=== PATIENT | female | born 1950 | race African-American/Black ===

== ENCOUNTER 2018-04-24 08:17 | Day surgery (SDC) | payer BC ==
[2018-04-21 15:58] VITALS: BMI 33.4
[2018-04-24 09:02] LABS: BASO % 0.4 % (0-2.0); EOS % 1.1 % (0-4.5); HEMATOCRIT 41.1 % (32.4-45.2); HEMOGLOBIN 14.1 GM/dL (10.7-15.3); LYMPH % 21.6 % (8-40); MCH 34.6 pg (25.7-33.7); MCHC 34.4 g/dl (32.0-36.0); MEAN CELL VOLUME 100.5 fl (80-96); MEAN PLT VOLUME 7.7 fl (7.5-11.1); MONO % 6.5 % (3.8-10.2); NEUT % 70.4 % (42.8-82.8); PLATELET COUNT 319 K/MM3 (134-434); RBC 4.09 M/mm3 (3.60-5.2); RDW 14.3 % (11.6-15.6)
[2018-04-24 09:25] LABS: INR 1.14 (0.83-1.09); PROTHROMBIN TIME (PATIENT) 12.9 SEC (9.7-13.0)
[2018-04-24] MEDS ORDERED: ceFAZolin SODIUM 1 GM VIAL ONE (10:19)
[2018-04-24] MEDS ORDERED: MIDAZOLAM HCL 2 MG/2 ML SINGLE DOSE VIAL ONE (10:39)
[2018-04-24 13:28] VITALS: BP 146/90; PULSE 87; TEMP 98.4
== END 2018-04-24 13:05 | disposition home or self-care (01) ==
LOC: JRADIR 08:17
PROVIDERS: ATTEND Internal Medicine Hematology & Oncology
PROC: 02H633Z Insertion of Infusion Device into Right Atrium, Percutaneous Approach (ICD-10-PCS; principal; 2018-04-24)
PROC: B214YZZ Fluoroscopy of Right Heart using Other Contrast (ICD-10-PCS; 2018-04-24)
DX: C50.919 Malignant neoplasm of unspecified site of unspecified female breast (principal)
CPT/HCPCS: 36561; 77001; C1751; 36415; 85025; 85610; C1788

== ENCOUNTER 2018-04-25 07:37 | Day surgery (SDC) | payer BC ==
[2018-04-25] MEDS ORDERED: FOSAPREPITANT DIMEGLUMINE 150 MG in SODIUM CHLORIDE 150 ML IVPB ONE (10:00)
[2018-04-25] MEDS ORDERED: DEXAMETHASONE INJECTION 10 MG in SODIUM CHLORIDE 50 ML IVPB ONE (10:00)
[2018-04-25] MEDS ORDERED: PALONOSETRON HCL 0.25 MG/5 ML VIAL IVPUSH ONE (10:00)
[2018-04-25] MEDS ORDERED: DOXORUBICIN HCL IV ONE (10:30)
[2018-04-25] MEDS ORDERED: SODIUM CHLORIDE IV ONE (10:30)
[2018-04-25] MEDS ORDERED: CYCLOPHOSPHAMIDE IVPB ONE (11:00)
[2018-04-25] MEDS ORDERED: SODIUM CHLORIDE IVPB ONE (11:00)
[2018-04-25] MEDS ORDERED: SODIUM CHLORIDE 250 ML IV STA (11:26)
[2018-04-25] MEDS ORDERED: SODIUM CHLORIDE 250 ML IV ONE (11:30)
[2018-04-25 17:58] VITALS: TEMP 98.6
[2018-04-25 18:30] VITALS: BP 125/84; PULSE 84
[2018-04-25] MEDS ORDERED: PORTA CATH FLUSH 10 ML IVPUSH ONE (18:30)
== END 2018-04-25 16:45 | disposition home or self-care (01) ==
LOC: JONCCHEMO 07:37 → J7W 12:00 → JONCCHEMO 16:45
PROVIDERS: ATTEND Internal Medicine Hematology & Oncology
PROC: 3E04305 Introduction of Other Antineoplastic into Central Vein, Percutaneous Approach (ICD-10-PCS; principal; 2018-04-25)
PROC: 3E043GC Introduction of Other Therapeutic Substance into Central Vein, Percutaneous Approach (ICD-10-PCS; 2018-04-25)
PROC: 3E0437Z Introduction of Electrolytic and Water Balance Substance into Central Vein, Percutaneous Approach (ICD-10-PCS; 2018-04-25)
DX: Z51.11 Encounter for antineoplastic chemotherapy (principal); C50.412 Malignant neoplasm of upper-outer quadrant of left female breast; Z17.1 Estrogen receptor negative status [ER-]
CPT/HCPCS: 96361; 96367; 96375; 96413; 96417; J1100; J1453; J2469; J9070

== ENCOUNTER 2018-05-10 07:38 | Day surgery (SDC) | payer BC ==
[2018-05-10] MEDS ORDERED: SODIUM CHLORIDE 250 ML IV ONE ×2 (08:00→10:00)
[2018-05-10] MEDS ORDERED: DEXAMETHASONE INJECTION 10 MG in SODIUM CHLORIDE 50 ML IVPB ONE (08:30)
[2018-05-10] MEDS ORDERED: PALONOSETRON HCL 0.25 MG/5 ML VIAL IVPUSH ONE (08:30)
[2018-05-10] MEDS ORDERED: FOSAPREPITANT DIMEGLUMINE 150 MG in SODIUM CHLORIDE 145 ML IVPB ONE (08:30)
[2018-05-10] MEDS ORDERED: SODIUM CHLORIDE IV ONE (09:00)
[2018-05-10] MEDS ORDERED: DOXORUBICIN HCL IV ONE (09:00)
[2018-05-10] MEDS ORDERED: SODIUM CHLORIDE IVPB ONE (09:30)
[2018-05-10] MEDS ORDERED: CYCLOPHOSPHAMIDE IVPB ONE (09:30)
[2018-05-10 09:45] LABS: BASO % 0.6 % (0-2.0); EOS % 0.9 % (0-4.5); HEMATOCRIT 40.4 % (32.4-45.2); HEMOGLOBIN 13.7 GM/dL (10.7-15.3); LYMPH % 14.2 % (8-40); MCH 33.7 pg (25.7-33.7); MCHC 33.9 g/dl (32.0-36.0); MEAN CELL VOLUME 99.6 fl (80-96); MEAN PLT VOLUME 7.2 fl (7.5-11.1); MONO % 9.2 % (3.8-10.2); NEUT % 75.1 % (42.8-82.8); PLATELET COUNT 372 K/MM3 (134-434); RBC 4.05 M/mm3 (3.60-5.2); RDW 14.1 % (11.6-15.6); WHITE BLOOD COUNT 10.2 K/mm3 (4.0-10.0)
[2018-05-10 10:07] LABS: ALBUMIN 3.5 g/dl (3.4-5.0); ALK PHOS 79 U/L (45-117); BILIRUBIN,DIRECT < 0.2 mg/dL (0.0-0.2); MAGNESIUM 2.1 mg/dL (1.8-2.4); SGOT/AST 18 U/L (15-37); SGPT/ALT 36 U/L (12-78); TOT PROT 7.4 g/dl (6.4-8.2)
[2018-05-10 10:08] LABS: ALBUMIN 3.5 g/dl (3.4-5.0); ANION GAP 13 MMOL/L (8-16); BILIRUBIN,TOTAL 0.1 mg/dL (0.2-1.0); BLOOD UREA NITROGEN 9 mg/dL (7-18); CALCIUM 10.3 mg/dL (8.5-10.1); CHLORIDE 108 mmol/L (98-107); CO2 22 mmol/L (21-32); CREATININE 0.9 mg/dL (0.55-1.02); GLUCOSE,RANDOM 116 mg/dL (74-106); SGOT/AST 17 U/L (15-37); SGPT/ALT 36 U/L (12-78); SODIUM 143 mmol/L (136-145); TOT PROT 7.4 g/dl (6.4-8.2)
[2018-05-10 10:09] LABS: ALK PHOS 78 U/L (45-117)
[2018-05-10 10:13] LABS: BILIRUBIN,TOTAL < 0.1 mg/dL (0.2-1.0)
[2018-05-10 12:19] LABS: ANISOCYTOSIS 1+; MACROCYTOSIS 1+; PLATELET ESTIMATE NORMAL
[2018-05-10 17:24] VITALS: TEMP 98.6
[2018-05-10 17:35] VITALS: BP 130/78; PULSE 70
[2018-05-10] MEDS ORDERED: PORTA CATH FLUSH 10 ML IVPUSH ONE (17:35)
== END 2018-05-10 16:45 | disposition home or self-care (01) ==
LOC: JONCCHEMO 07:38 → J7W 11:29 → JONCCHEMO 16:45
PROVIDERS: ATTEND Internal Medicine Hematology & Oncology
PROC: 3E04305 Introduction of Other Antineoplastic into Central Vein, Percutaneous Approach (ICD-10-PCS; principal; 2018-05-10)
PROC: 3E043GC Introduction of Other Therapeutic Substance into Central Vein, Percutaneous Approach (ICD-10-PCS; 2018-05-10)
PROC: 3E0437Z Introduction of Electrolytic and Water Balance Substance into Central Vein, Percutaneous Approach (ICD-10-PCS; 2018-05-10)
DX: C50.412 Malignant neoplasm of upper-outer quadrant of left female breast (principal); Z17.1 Estrogen receptor negative status [ER-]
CPT/HCPCS: 36415; 80053; 80076; 83735; 85025; 96361; 96367; 96375; 96413; 96417; J1100; J1453; J2469; J9070

== ENCOUNTER 2018-05-11 07:34 | Day surgery (SDC) | payer BC ==
[2018-05-11] MEDS ORDERED: PEGFILGRASTIM 6 MG/0.6 ML DISP.SYRIN SQ ONE (09:00)
[2018-05-11 17:20] VITALS: BP 158/79; PULSE 101; TEMP 98.6
== END 2018-05-11 16:45 | disposition home or self-care (01) ==
LOC: JONCCHEMO 07:34 → J7W 16:34 → JONCCHEMO 16:45
PROVIDERS: ATTEND Internal Medicine Hematology & Oncology
PROC: 3E033GC Introduction of Other Therapeutic Substance into Peripheral Vein, Percutaneous Approach (ICD-10-PCS; principal; 2018-05-11)
DX: Z76.89 Persons encountering health services in other specified circumstances (principal); C50.412 Malignant neoplasm of upper-outer quadrant of left female breast; Z17.1 Estrogen receptor negative status [ER-]
CPT/HCPCS: 96372; J2505

== ENCOUNTER 2018-05-24 07:36 | Day surgery (SDC) | payer BC ==
[2018-05-24] MEDS ORDERED: SODIUM CHLORIDE 250 ML IV ONE ×2 (09:00→11:30)
[2018-05-24] MEDS ORDERED: PALONOSETRON HCL 0.25 MG/5 ML VIAL IVPUSH ONE (10:00)
[2018-05-24] MEDS ORDERED: FOSAPREPITANT DIMEGLUMINE 150 MG in SODIUM CHLORIDE 150 ML IVPB ONE (10:00)
[2018-05-24] MEDS ORDERED: DEXAMETHASONE INJECTION 10 MG in SODIUM CHLORIDE 50 ML IVPB ONE (10:00)
[2018-05-24] MEDS ORDERED: DOXORUBICIN HCL IV ONE (10:30)
[2018-05-24] MEDS ORDERED: SODIUM CHLORIDE IV ONE (10:30)
[2018-05-24 10:37] LABS: BASO % 0.4 % (0-2.0); EOS % 0.8 % (0-4.5); HEMATOCRIT 39.5 % (32.4-45.2); HEMOGLOBIN 13.1 GM/dL (10.7-15.3); LYMPH % 16.1 % (8-40); MCH 33.1 pg (25.7-33.7); MCHC 33.1 g/dl (32.0-36.0); MEAN CELL VOLUME 100.2 fl (80-96); MEAN PLT VOLUME 7.2 fl (7.5-11.1); NEUT % 72.7 % (42.8-82.8); PLATELET COUNT 346 K/MM3 (134-434); RBC 3.94 M/mm3 (3.60-5.2); RDW 14.4 % (11.6-15.6); WHITE BLOOD COUNT 8.6 K/mm3 (4.0-10.0)
[2018-05-24] MEDS ORDERED: SODIUM CHLORIDE IVPB ONE (11:00)
[2018-05-24] MEDS ORDERED: CYCLOPHOSPHAMIDE IVPB ONE (11:00)
[2018-05-24 11:12] LABS: CHLORIDE 106 mmol/L (98-107); POTASSIUM 4.5 mmol/L (3.5-5.1); SODIUM 139 mmol/L (136-145)
[2018-05-24 12:19] LABS: ANISOCYTOSIS 1+; MACROCYTOSIS 1+; OVALOCYTE 1+; PLATELET ESTIMATE NORMAL
[2018-05-24 12:31] LABS: MAGNESIUM 1.9 mg/dL (1.8-2.4)
[2018-05-24 12:33] LABS: ALBUMIN 3.5 g/dl (3.4-5.0); BILIRUBIN,TOTAL 0.1 mg/dL (0.2-1); BLOOD UREA NITROGEN 6 mg/dL (7-18); CALCIUM 10.1 mg/dL (8.5-10.1); GLUCOSE,RANDOM 123 mg/dL (74-106); SGOT/AST 21 U/L (15-37); TOT PROT 7.4 g/dl (6.4-8.2)
[2018-05-24 12:56] LABS: ALBUMIN 3.5 g/dl (3.4-5.0)
[2018-05-24 12:59] LABS: ALK PHOS 94 U/L (45-117); BILIRUBIN,DIRECT < 0.2 mg/dL (0.0-0.2); BILIRUBIN,TOTAL 0.1 mg/dL (0.2-1); SGOT/AST 15 U/L (15-37); SGPT/ALT 35 U/L (13-61); TOT PROT 7.3 g/dl (6.4-8.2)
[2018-05-24 13:34] LABS: URINE APPEARANCE SLCLOUDY; URINE BILIRUBIN NEGATIVE (<2.0 mg/dL); URINE COLOR AMBER; URINE GLUCOSE (UA) NEGATIVE (NEGATIVE); URINE KETONE TRACE (NEGATIVE); URINE LEUK ESTERASE NEGATIVE (NEGATIVE); URINE NITRITE NEGATIVE (NEGATIVE); URINE PROTEIN NEGATIVE (NEGATIVE)
[2018-05-24 13:46] LABS: ANION GAP 10 MMOL/L (8-16); CO2 23 mmol/L (21-32)
[2018-05-24 13:53] LABS: ALK PHOS 98 U/L (45-117); SGPT/ALT 38 U/L (13-61)
[2018-05-24] MEDS ORDERED: CEFAZOLIN 1 GM in DEXTROSE 5%-WATER - 50 ML IVPB ONE (14:30)
[2018-05-24] MEDS ORDERED: DEXTROSE 5%-WATER - 50 ML IVPB ONE (14:33)
[2018-05-24] MEDS ORDERED: ceFAZolin SODIUM 1 GM VIAL ONE (14:33)
[2018-05-24] MEDS ORDERED: PORTA CATH FLUSH 10 ML IVPUSH ONE (15:30)
[2018-05-24 16:39] VITALS: BP 138/76; PULSE 94; TEMP 98.3
== END 2018-05-24 16:30 | disposition home or self-care (01) ==
LOC: JONCCHEMO 07:36 → J7W 12:17 → JONCCHEMO 16:30
PROVIDERS: ATTEND Internal Medicine Hematology & Oncology
DX: Z51.11 Encounter for antineoplastic chemotherapy (principal); C50.412 Malignant neoplasm of upper-outer quadrant of left female breast; Z53.8 Procedure and treatment not carried out for other reasons
CPT/HCPCS: 36415; 80053; 80076; 81003; 83735; 85025; 87040; 87070; 87186; 87205; 96365; 96417

== ENCOUNTER 2018-05-26 07:32 | Day surgery (SDC) | payer BC ==
[2018-05-26] MEDS ORDERED: SODIUM CHLORIDE 250 ML IV ONE ×2 (08:00→10:30)
[2018-05-26] MEDS ORDERED: PALONOSETRON HCL 0.25 MG/5 ML VIAL IVPUSH ONE (08:30)
[2018-05-26] MEDS ORDERED: FOSAPREPITANT DIMEGLUMINE 150 MG in SODIUM CHLORIDE 145 ML IVPB ONE (08:30)
[2018-05-26] MEDS ORDERED: DEXAMETHASONE INJECTION 10 MG in SODIUM CHLORIDE 50 ML IVPB ONE (08:30)
[2018-05-26] MEDS ORDERED: DOXORUBICIN HCL IV ONE (09:00)
[2018-05-26] MEDS ORDERED: SODIUM CHLORIDE IV ONE (09:00)
[2018-05-26] MEDS ORDERED: CYCLOPHOSPHAMIDE IVPB ONE (10:00)
[2018-05-26] MEDS ORDERED: SODIUM CHLORIDE IVPB ONE (10:00)
[2018-05-26 18:08] VITALS: PULSE 76; TEMP 98.8
[2018-05-26] MEDS ORDERED: PORTA CATH FLUSH 10 ML IVPUSH ONE (18:08)
[2018-05-26 18:14] VITALS: BP 115/84
== END 2018-05-26 15:28 | disposition home or self-care (01) ==
LOC: JONCCHEMO 07:32 → J7W 09:46 → JONCCHEMO 15:28
PROVIDERS: ATTEND Internal Medicine Hematology & Oncology
DX: Z51.11 Encounter for antineoplastic chemotherapy (principal); C50.412 Malignant neoplasm of upper-outer quadrant of left female breast
CPT/HCPCS: 96361; 96367; 96375; 96413; 96417; J1100; J1453; J2469; J9070

== ENCOUNTER 2018-05-27 15:34 | Day surgery (SDC) | payer BC ==
[~2018-05-27 15:34] MED LIST: PEGFILGRASTIM 6 MG/0.6 ML DISP.SYRIN SQ ONE
[2018-05-27 16:10] VITALS: BP 100/60; TEMP 98.1
[2018-05-27 16:12] VITALS: PULSE 96
== END 2018-05-27 16:00 | disposition home or self-care (01) ==
LOC: JONCCHEMO 15:34 → J7W 15:42 → JONCCHEMO 16:00
PROVIDERS: ATTEND Internal Medicine Hematology & Oncology
PROC: 3E013GC Introduction of Other Therapeutic Substance into Subcutaneous Tissue, Percutaneous Approach (ICD-10-PCS; principal; 2018-05-27)
DX: C50.412 Malignant neoplasm of upper-outer quadrant of left female breast (principal); Z76.89 Persons encountering health services in other specified circumstances
CPT/HCPCS: 96372; J2505

== ENCOUNTER 2018-06-27 06:49 | Inpatient (IN) | payer BC ==
[2018-06-20 09:41] VITALS: BMI 31.1
--- NOTE | 2018-06-21 10:43 | HP ---
Admitting History and Physical - Primary Care Physician PCP: Shantelle Nolasco - Admission Chief Complaint: Left breast cancer History of Present Illness: 67 year old postmenapausal female with palpable left breast mass LUOQ. 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 Right breast core biopsy showed a fibroadenoma right 9:00 hypoechoic mass. 03/2018 left axillary core biopsy showed metastatic carcinoma. She was receiving nepadjuvant chemotherapy AC and the left breast cancer and axillary node has increase in size confirmed on US. Breast MRI 03/2018 showed 4.3 cm left breast cancer at 3: 00 8 cm FN and two prominent left axillary nodes. 1.4 cm right breast mass biopsied fibroadenoma. History Source: Patient - Past Surgical History Past Surgical History: Yes: Hysterectomy (1986 fibroids Bilateral breast reduction 1989 left rbeast abscess 2 yrs ago) - Smoking History Smoking history: Current every day smoker Have you smoked in the past 12 months: Yes Aproximately how many cigarettes per day: 15 - Alcohol/Substance Use Hx Alcohol Use: Yes (SOCIALLY) Home Medications - Allergies Allergies/Adverse Reactions: Allergies Allergy/AdvReac Type Severity Reaction Status Date / Time No Known Drug Allergies Allergy Verified 04/21/18 15:58 bio-occlusive dressing Allergy Mild itchy red Uncoded 05/24/18 16:09 rash at dressing site - Home Medications Home Medications: Ambulatory Orders Pantoprazole Sodium 40 mg PO DAILY PRN 04/21/18 Prochlorperazine Maleate [Compazine] 10 mg PO Q4H PRN 04/21/18 Family Disease History - Family Disease History Family History: Denies Physical Examination Constitutional: Yes: Well Nourished, No Distress Breast(s): Yes: Other (diffusely nodular bilaterally firm mobile left breast mass 5 cm at 3:00 some skn dimpling no ulceration right breast palapble density compatible with biopsied fibroadenoma) Problem List - Problems (1) Breast cancer, left breast Code(s): C50.912 - MALIGNANT NEOPLASM OF UNSPECIFIED SITE OF LEFT FEMALE BREAST Qualifiers: Breast location: overlapping sites of breast Estrogen receptor status: negative Patient sex: female Qualified Code(s): C50.812 - Malignant neoplasm of overlapping sites of left female breast; Z17.1 - Estrogen receptor negative status [ER-] Assessment/Plan Left modified radical mastectomy with reconstruction
[2018-06-27] MEDS ORDERED: BUPIVACAINE HCL/PF (5 MG/ML) 30 ML VIAL IJ ONE (07:53)
[2018-06-27] MEDS ORDERED: MIDAZOLAM HCL 2 MG/2 ML SINGLE DOSE VIAL ONE (07:53)
[2018-06-27] MEDS ORDERED: DEXAMETHASONE SOD PHOSPHATE/PF 10 MG/ML SDV ONE (07:53)
[2018-06-27] MEDS ORDERED: DESFLURANE GAS 240 ML BOTTLE IH ONE (09:55)
[2018-06-27] MEDS ORDERED: oxyCODONE HCL 5 MG TABLET PO PRN ×2 (10:14)
[2018-06-27] MEDS ORDERED: ONDANSETRON 4 MG/2 ML VIAL IVPUSH PRN (11:10)
[2018-06-27] MEDS ORDERED: ZOLPIDEM TARTRATE 5 MG TABLET PO PRN (11:10)
[2018-06-27] MEDS ORDERED: ACETAMINOPHEN 325 MG TABLET (FP) PO PRN (11:10)
--- NOTE | 2018-06-27 12:56 | OP ---
Operative Note - Note: Operative Date: 06/27/18 Pre-Operative Diagnosis: Left breast cancer Operation: Left breast reconstruction with assembly cleaner s/p mastectomy Post-Operative Diagnosis: Same as Pre-op Surgeon: Andrea Harrison Nuclear Plant Equipment Operator: Jose Torres Anesthesia: General Estimated Blood Loss (mls): 25 Fluid Volume Replaced (mls): 1,200 Operative Report Dictated: Yes
--- NOTE | 2018-06-27 12:57 | SURG ---
Surgery Skilled Nursing Professional Note Skilled Nursing Professional: Jose Torres PA-C Date of Service: 06/27/18 Diagnosis: Left breast cancer Procedure: Left breast reconstruction with diesel engine i pipe fitter s/p mastectomy I was present for the entirety of the operative procedure. For further detail, please refer to operative report. Visit type - Case Type Case Type: Scheduled - Emergency Emergency Visit: No - New patient This patient is new to me today: Yes Date on this admission: 06/27/18
[2018-06-27] MEDS ORDERED: CEFAZOLIN 1 GM/D5W 1 GM/50 ML BAG ONE (15:12)
[2018-06-27] MEDS ORDERED: traMADol HCL 50 MG TABLET ONE (15:12)
[2018-06-27] MEDS ORDERED: diazePAM 2 MG TABLET ONE (15:12)
[2018-06-27] MEDS: CEFAZOLIN 1 GM/D5W 1 GRAM/50 ML BAG IVPB SCH ×2 (15:15→21:47)
[2018-06-27] MEDS: diazePAM 2 MG TABLET PO SCH (15:30)
--- NOTE | 2018-06-27 17:21 | OP ---
DATE OF OPERATION: 06/27/2018 TITLE OF PROCEDURE: Left sided breast reconstruction using tissue air tool operator and acellular dermal matrix left breast intraoperative SPY angiography. Repair of thoracic blood vessel. ATTENDING SURGEON: Andrea Harrison M.D. ANESTHESIA: General endotracheal anesthesia . DESCRIPTION OF PROCEDURE: Patient is marked in the holding area, awake and aware of all incisions and resulting scars. She understands and agrees to proceed because of a previous breast reduction with what appears to be some healing by secondary intention. There are concerns about the viability of the skin flaps. The patient has multiple pattern excisions that are prepared depending on the nature of the intraoperative angiography. She is given sequential compression stockings and STEPHANIE hose. 2 g of Ancef are given preoperatively. She is brought to the operating room, placed in a supine position. Position is carefully checked by surgical and anesthesia teams. She is prepped and draped with a Betadine scrub followed by a ChloraPrep paint. The procedure commences with Dr. Nolasco and his team performing the left modified radical mastectomy for which I was the first beater. That procedure is to be dictated separately by Dr. Nolasco. Following this, the reconstruction commences. This is done first with hemostasis throughout the modified radical mastectomy wound. It is identified that the 2nd intercostal perforating blood vessel which is entering the mastectomy flap was very large and a rent has been caused during the mastectomy in this blood vessel which appears to be important for perfusion to the superior mastectomy flap. Under direct vision and loop magnification, the control is obtained proximally and distally on the blood vessel by an kitchen assistant, and the repair with a 7-0 nylon suture, 2 separate interrupted sutures are performed. A piece of hemostatic fat is placed over the repair. This is done using microsurgical technique. At this point, hemostasis is then completed. The lateral edge of the pectoralis major muscle is identified and elevated. A dissection plane is developed deep to the pectoralis major muscle. Inferomedially, the fibers are too attenuated to be preserved at their sternal attachments. This has divided however a large central segment of the muscle able to be maintained attached to the rectus sheath. Hemostasis is once again achieved, and the new inframammary fold which is marked at 1.5 cm inferior to the existing inframammary fold is then translocated onto the chest wall. The chest wall is marked, and the acellular dermal matrix AlloDerm contour perforated sheath is then brought onto the field, secured to this marking of the new inframammary fold as well as the medial extent of the planned pocket, and superiorly to the free edge of the pectoralis major muscle with a 2-0 PDS suture. Using new gloves, the tissue air tool operator is then brought onto the field. A 133 SX-16 air tool operator is brought to the field, and it is positioned deep to the pectoralis major muscle and acellular dermal matrix. Laterally, the tissue air tool operator is secured in position with 2 suture tags using 2-0 PDS suture to the chest wall. Laterally acellular dermal matrix is then secured to the inframammary fold and lateral breast fold. The free medial margin is secured to the pectoralis major muscle. All of the sutures are with 2-0 PDS suture. The SPY intraoperative angiography is then brought onto the field after injection of . It is determined that there is significant hypoperfusion of the inferior skin flap and this is to the level of the scar of the secondary healing that had been preoperatively noted. There is adequate skin laxity to excise this excess skin which is performed with good bright red bleeding from the new dermal edges. The closure of the tissues is then performed over 2 size 10 flat LASHONDA drains secured with 2-0 silk nylon suture. This is after copious irrigation with standard and triple antibiotic solution. It should be noted that the pocket of the tissue air tool operator is also irrigated with standard triple antibiotic solution. The inferior drain is along the inferior recess of the wound, the superior drain is draped through the axilla into the superior recess of the wound. Closure is then performed of the mastectomy skin fat capsule with a running 3-0 Monocryl suture. The deep dermis is then closed with a series of interrupted buried deep dermal 3-0 Monocryl suture followed by a running subcuticular 3-0 Monocryl suture. Drains placed to bulb suction. The dressings are Xeroform, nitroglycerin paste to the skin edges particularly on the inferior flap, ABD gauze, and breast binder. Patient awoken from anesthesia having tolerated procedure well, transferred to recovery without complication. Mora [id number]
--- NOTE | 2018-06-27 19:48 | OP ---
DATE OF OPERATION: 06/27/2018 PREOPERATIVE DIAGNOSIS: Left breast cancer with axillary metastasis, progressing on neoadjuvant chemotherapy. POSTOPERATIVE DIAGNOSIS: Left breast cancer with axillary metastasis, progressing on neoadjuvant chemotherapy. PROCEDURE: Left modified radical mastectomy. ANESTHESIA: General intubated. ATTENDING SURGEON: Xenia Nolasco MD COMPANY DANCER: DANNY Shelby ESTIMATED BLOOD LOSS: Minimal. COMPLICATIONS: None. DESCRIPTION OF PROCEDURE: Patient was made aware of the risks and benefits of the procedure and consented. She was placed in a supine position, and after general anesthesia was induced, the patient was intubated. The operative site was prepped and draped in usual sterile fashion. An elliptical incision horizontally oriented was made around the nipple and areola. Using electrocautery, skin flaps were made superior to the clavicle, medial to the sternum, lateral to latissimus dorsi, and inferior to the inframammary fold. Using electrocautery, the breast tissue was taken off the pectoralis muscle extending to latissimus dorsi. The clavipectoral fascia was incised along the chest wall. The long thoracic nerve was identified and retracted medially along its length. Laterally to this, there was the thoracodorsal trunk which was identified and retracted laterally between the two. The tissue was bluntly and sharply excised using electrocautery and medium hemoclips. The specimen was then submitted with a short suture superior, long suture lateral as left breast and axillary contents. Palpation of the rest of the axilla and level 3 lymph nodes felt, I found no worrisome lymph nodes. The wound was copiously irrigated with normal saline. Hemostasis maintained by electrocautery. The long thoracic and thoracodorsal trunks were identified and found to be intact. The procedure was then turned over to Dr. Andrea Harrison, the plastic surgeon, who did an matchbook assembler reconstruction. He will dictate his portion of the procedure separately. XENIA NOLASCO M.D. [id number]
[2018-06-27] MEDS: ACETAMINOPHEN 325 MG TABLET (FP) PO SCH (21:47)
[2018-06-27] MEDS: traMADol HCL 50 MG TABLET PO SCH (21:47)
[2018-06-28] MEDS: ACETAMINOPHEN 325 MG TABLET (FP) PO SCH ×3 (03:32→20:48)
[2018-06-28] MEDS: CEFAZOLIN 1 GM/D5W 1 GRAM/50 ML BAG IVPB SCH ×4 (03:33→20:48)
[2018-06-28] MEDS: traMADol HCL 50 MG TABLET PO SCH ×4 (03:54→20:49)
--- NOTE | 2018-06-28 08:25 | PN ---
Progress Note (short form) - Note Progress Note: POD 1 post TE left breast reconstruction No complications: LASHONDA's thin and functioning, no collections, no infection, No current evidence of skin ischemia. Pain is well controlled. OK for discharge if labs are OK and cleared by Breast surgery team. Follow up with me in one week. Leave all dressings on and dry. Teach LASHONDA care and log.
[2018-06-28 08:58] LABS: HEMATOCRIT 32.3 % (32.4-45.2); HEMOGLOBIN 11.2 GM/dl (10.7-15.3); MCH 34.7 pg (25.7-33.7); MCHC 34.5 g/dl (32.0-36.0); MEAN CELL VOLUME 100.6 fl (80-96); MEAN PLT VOLUME 8.3 fl (7.5-11.1); PLATELET COUNT 230 K/MM3 (134-434); RBC 3.22 M/mm3 (3.60-5.2); RDW 15.4 % (11.6-15.6); WHITE BLOOD COUNT 13.1 K/mm3 (4.0-10.8)
[2018-06-28] MEDS: diazePAM 2 MG TABLET PO SCH ×4 (09:13→22:38)
[2018-06-28] MEDS: HEPARIN NA (PORCINE) 5,000 UNITS/ML 1ML VIAL SQ SCH ×2 (09:14→20:47)
--- NOTE | 2018-06-28 10:20 | PN ---
Progress Note, Physician Chief Complaint: S/P left MRM with reconstruction POD#1 History of Present Illness: Patient was seen today at the bedside and reports good pain control. She is tolerating po well. - Current Medication List Current Medications: Active Medications Acetaminophen (Tylenol -) 650 mg PO Q6H [facility] Last Admin: 06/28/18 09:13 Dose: 650 mg Acetaminophen (Tylenol -) 650 mg PO Q4H PRN PRN Reason: FEVER Diazepam (Valium -) 2 mg PO Q8H [facility] Last Admin: 06/28/18 09:13 Dose: 2 mg Heparin Sodium (Porcine) (Heparin -) 5,000 unit SQ BID@0800,2000 [facility] Last Admin: 06/28/18 09:14 Dose: 5,000 unit Cefazolin Sodium (Ancef 1 Gm Premixed Ivpb -) 1 gram in 50 mls @ 100 mls/hr IVPB Q6H-IV [facility] Stop: 07/04/18 14:59 Last Admin: 06/28/18 09:14 Dose: 100 mls/hr Dextrose/Sodium Chloride (D5-1/2ns -) 1,000 mls @ 100 mls/hr IV ASDIR [facility] Ondansetron HCl (Zofran Injection) 4 mg IVPUSH Q6H PRN PRN Reason: NAUSEA AND/OR VOMITING Oxycodone HCl (Roxicodone -) 5 mg PO Q3H PRN PRN Reason: PAIN LEVEL 1-5 Oxycodone HCl (Roxicodone -) 10 mg PO Q4H PRN PRN Reason: PAIN LEVEL 6-10 Tramadol HCl (Ultram -) 50 mg PO Q6H [facility] Last Admin: 06/28/18 09:14 Dose: 50 mg Zolpidem Tartrate (Ambien -) 5 mg PO HS PRN PRN Reason: Insomnia - Objective Vital Signs: Vital Signs Temperature 98.1 F 06/28/18 05:00 Pulse Rate 87 06/28/18 05:00 Respiratory Rate 19 06/28/18 05:00 Blood Pressure 125/92 06/28/18 05:00 O2 Sat by Pulse Oximetry (%) 98 06/28/18 07:02 Constitutional: Yes: Well Nourished, Calm Breast(s): Yes: Left (Left chest flap with steristrips in place. No discharge or erythema noted. JPs with serosanginous discharge noted.) Labs: CBC, BMP 06/28/18 07:53 Problem List - Problems (1) Breast cancer, left breast Code(s): C50.912 - MALIGNANT NEOPLASM OF UNSPECIFIED SITE OF LEFT FEMALE BREAST Qualifiers: Breast location: overlapping sites of breast Estrogen receptor status: negative Patient sex: female Qualified Code(s): C50.812 - Malignant neoplasm of overlapping sites of left female breast; Z17.1 - Estrogen receptor negative status [ER-] Assessment/Plan Plan: Continue current treatment regime. D/C IVF when tolerating po well Plan for discharge in am.
--- NOTE | 2018-06-28 11:46 | PN ---
Progress Note (short form) - Note Progress Note: ANESTHESIA POSTOP: 68 yo female POD#1 L modified radical mastectomy with GA Patient doing well. Pain adequately controlled. Tolerating PO. VSS, Afebril Encouraged ambulation and use of IS. No anesthetic complications.
[2018-06-28] MEDS: DEXTROSE 5%-0.45% SALINE 1,000 ML IV SCH (11:49)
[2018-06-29] MEDS: traMADol HCL 50 MG TABLET PO SCH ×2 (03:31→09:30)
[2018-06-29] MEDS: ACETAMINOPHEN 325 MG TABLET (FP) PO SCH ×2 (03:32→09:18)
[2018-06-29] MEDS: CEFAZOLIN 1 GM/D5W 1 GRAM/50 ML BAG IVPB SCH ×2 (03:32→09:19)
[2018-06-29] MEDS: diazePAM 2 MG TABLET PO SCH (06:36)
[2018-06-29 07:00] VITALS: BP 154/91; PULSE 77; TEMP 97.8
--- NOTE | 2018-06-29 09:13 | PN ---
Progress Note, Physician Chief Complaint: S/P left MRM with reconstruction POD#2 History of Present Illness: Patient was seen today at the bedside and reports good pain control. She is tolerating po well and without any other complaints. - Current Medication List Current Medications: Active Medications Acetaminophen (Tylenol -) 650 mg PO Q6H [facility] Last Admin: 06/29/18 03:32 Dose: 650 mg Acetaminophen (Tylenol -) 650 mg PO Q4H PRN PRN Reason: FEVER Diazepam (Valium -) 2 mg PO Q8H [facility] Last Admin: 06/29/18 06:36 Dose: 2 mg Heparin Sodium (Porcine) (Heparin -) 5,000 unit SQ BID@0800,2000 [facility] Last Admin: 06/28/18 20:47 Dose: 5,000 unit Cefazolin Sodium (Ancef 1 Gm Premixed Ivpb -) 1 gram in 50 mls @ 100 mls/hr IVPB Q6H-IV [facility] Stop: 07/04/18 14:59 Last Admin: 06/29/18 03:32 Dose: 100 mls/hr Dextrose/Sodium Chloride (D5-1/2ns -) 1,000 mls @ 100 mls/hr IV ASDIR [facility] Last Admin: 06/28/18 11:49 Dose: Not Given Ondansetron HCl (Zofran Injection) 4 mg IVPUSH Q6H PRN PRN Reason: NAUSEA AND/OR VOMITING Oxycodone HCl (Roxicodone -) 5 mg PO Q3H PRN PRN Reason: PAIN LEVEL 1-5 Oxycodone HCl (Roxicodone -) 10 mg PO Q4H PRN PRN Reason: PAIN LEVEL 6-10 Tramadol HCl (Ultram -) 50 mg PO Q6H [facility] Last Admin: 06/29/18 03:31 Dose: 50 mg Zolpidem Tartrate (Ambien -) 5 mg PO HS PRN PRN Reason: Insomnia - Objective Vital Signs: Vital Signs Temperature 97.8 F 06/29/18 06:00 Pulse Rate 77 06/29/18 06:00 Respiratory Rate 18 06/29/18 06:00 Blood Pressure 154/91 06/29/18 06:00 O2 Sat by Pulse Oximetry (%) 98 06/29/18 06:00 Constitutional: Yes: Well Nourished, Calm Breast(s): Yes: Left (Flap is warm with steristrips intact. JPs with serosanginous discharge noted. No erythema or discharge noted at the incision.) Labs: CBC, BMP 06/28/18 07:53 Problem List - Problems (1) Breast cancer, left breast Code(s): C50.912 - MALIGNANT NEOPLASM OF UNSPECIFIED SITE OF LEFT FEMALE BREAST Qualifiers: Breast location: overlapping sites of breast Estrogen receptor status: negative Patient sex: female Qualified Code(s): C50.812 - Malignant neoplasm of overlapping sites of left female breast; Z17.1 - Estrogen receptor negative status [ER-] Assessment/Plan Plan: Discharge today as planned. Followup with Dr. Carpio and Dr. Harrison next week. Pain meds as needed with daily axbx
[2018-06-29] MEDS: HEPARIN NA (PORCINE) 5,000 UNITS/ML 1ML VIAL SQ SCH (09:19)
[2018-06-29] MEDS: DEXTROSE 5%-0.45% SALINE 1,000 ML IV SCH (12:32)
--- NOTE | 2018-07-04 13:52 | PATH ---
Surgical Pathology Report Patient Name: YUSEF GAY Med. Rec. #: [id number] /Age/Gender: 1950 (Age: 68) / F Account: [id number] Location: [facility] MED-SURG Taken: 06/27/2018 Received: 06/27/2018 Reported: 07/04/2018 Physicians: Shantelle Nolasco M.D. Specimen(s) Received A: LEFT BREAST AND AXILLARY CONTENTS B: EXTRA MASTECTOMY SKIN LEFT BREAST Clinical History s/p neoadjuvant chemo with progression Final Diagnosis A. breast with axillary contents, left, modified radical mastectomy: Invasive ductal carcinoma, poorly differentiated (tubule SCORE: 3/3, nuclear grade: 3/3, mitotic score: 3/3; total score 9/9, Lloyd grade 3). Invasive carcinoma measures 4.8 cm in greatest dimension (gross measurement) and is present in the upper outer quadrant (UOQ). Rare foci of dense fibrosis and histiocytic reaction identified within the tumor, suggestive of minimal (< 5%) TREATMENT EFFECT. DUCTAL CARCINOMA IN SITU (DCIS), SOLID TYPE WITH EXTENSIVE NECROSIS IS PRESENT ADMIXED WITH INVASIVE CARCINOMA. SURGICAL MARGINS ARE UNINVOLVED BY CARCINOMA; INVASIVE CARCINOMA IS AT 1.5 CM FROM THE CLOSEST (ANTERIOR SOFT TISSUE) MARGIN AND DCIS IS AT 2 CM FROM THE CLOSEST (DEEP) MARGIN. NIPPLE AND SKIN ARE UNINVOLVED BY CARCINOMA. LYMPHOVASCULAR INVASION IS IDENTIFIED. METASTATIC CARCINOMA INVOLVING SEVEN OF TWELVE LYMPH NODES (7/12): SIX OF THE LYMPH NODES ARE EXTENSIVELY INVOLVED BY AND ALMOST COMPLETE REPLACED BY METASTATIC CARCINOMA (MACROMETASTASES), WITH THE LARGEST INVOLVED LYMPH NODE SPANNING 2.9 CM IN GREATEST DIMENSION (GROSS MEASUREMENT). ONE LYMPH NODE SHOWS A FOCUS OF MICROMETASTASIS. EXTRANODAL EXTENSION IS PRESENT. PATHOLOGIC STAGE (ypTNM): ypT2 ypN2a. SEE ALSO INVASIVE CARCINOMA CASE SUMMARY BELOW. B. extra mastectomy skin, left breast, excision: Skin with no pathologic findings. Comments Breast Invasive Carcinoma: Surgical Pathology Case Summary (Based on AJCC TNM 8 th edition) Procedure _X_ Modified radical mastectomy Specimen Laterality _X_ Left Tumor Size _X_ Greatest dimension of largest invasive focus >1 mm (specify exact measurement) (millimeters): 48 mm Histologic Type _X_ Invasive carcinoma of no special type (ductal, not otherwise specified) Histologic Grade (Lloyd Histologic Score) Glandular (Acinar)/Tubular Differentiation _X_ Score 3 (<10% of tumor area forming glandular/tubular structures) Nuclear Pleomorphism _X_ Score 3 Mitotic Rate _X_ Score 3 Overall Grade _X_ Grade 3 (scores of 8 or 9) Tumor Focality _X_ Single focus of invasive carcinoma Ductal Carcinoma In Situ (DCIS) _X_ DCIS is present in specimen _X_ Negative for extensive intraductal component (EIC) Margins Invasive Carcinoma Margins _X_ Uninvolved by invasive carcinoma Distance from closest margin (millimeters): 15 mm Closest margin: anterior soft tissue DCIS Margins _X_ Uninvolved by DCIS Distance from closest margin (millimeters): 20 mm Closest margin: deep Regional Lymph Nodes Number of Lymph Nodes with Macrometastases (>2 mm): 6 Number of Lymph Nodes with Micrometastases (>0.2 mm to 2 mm and/or >200 cells): 1 Number of Lymph Nodes with Isolated Tumor Cells (=0.2 mm and =200 cells): 0 Size of Largest Metastatic Deposit (millimeters): 29 mm Extranodal Extension: _X_ Present Number of Lymph Nodes Examined: 12 Number of Stanton Nodes Examined : 0 Treatment Effect Treatment Effect in the Breast _X_ No definite response to presurgical therapy in the invasive carcinoma Treatment Effect in the Lymph Nodes _X_ No definite response to presurgical therapy in metastatic carcinoma Lymphovascular Invasion _X_ Present Pathologic Stage Classification (pTNM, AJCC 8th Edition) Primary Tumor (Invasive Carcinoma) (pT) _X_ ypT2: Tumor >20 mm but =50 mm in greatest dimension Regional Lymph Nodes (pN) Category (pN) _X_ ypN2a: Metastases in 4 to 9 axillary lymph nodes (at least 1 tumor deposit larger than 2.0 mm) Biomarker Studies Results of ER and HI studies performed on this specimen (block A4) at [facility] are as follows: ER (clone [id number] mouse monoclonal antibody by [employer]): 0 % nuclear staining (Negative). HI (clone16 mouse monoclonal antibody by [employer]): 0 % nuclear staining (Negative). Results of Her2 (IHC) & Ki-67 studies performed on this specimen (block A4) at [place], [place] ([id number]) are as follows: Her2 IHC (EP3 from [employer], formerly known as [id number], using [employer] Polymer Refine detection kit): 0 (Negative). Ki67: 50-60% (high proliferative index). Positive and negative controls (internal if applicable) show appropriate results. Formalin fixation and cold ischemic times are within current ASCO/CAP recommendations for ER, HI and Her2 testing. Electronically Signed Marcella Khan M.D. Gross Description A.Received in formalin, labeled "left breast and axillary contents," is a 1590 gram, 23.0 x 20.0 x 8.5 cm. left mastectomy specimen with a short suture marking the superior aspect and a long suture marking the lateral aspect of the specimen, per the surgeon. There is an 8.5 x 6.5 x 2.5 cm portion of axillary fat attached at the lateral aspect of specimen. The anterior surface displays a 15.0 x 6.0 cm wells-brown, elliptical portion of skin with a 1.5 cm in diameter nipple. The deep margin is inked black and the anterior soft tissue margin is inked blue. The specimen is serially sectioned from medial to lateral. Sectioning reveals a 4.8 x 4.5 x 4.0 cm wells, firm mass in the upper outer quadrant (UOQ). The mass is 1.7 cm from the deep margin and 1.4 cm from the anterior soft tissue margin. The remaining breast parenchyma displays multiple foci of white fibrous tissue. Sectioning of the axillary fat reveals abundant wells lymph nodes measuring up to 2.9 cm in greatest dimension. Door Manager sections are submitted in 36 cassettes as follows: 1-serially sectioned nipple; 2-subareolar shave; 3-8-one full face section of mass; 9-10-mass with anterior soft tissue margin; 11-mass with deep margin; 12-uninvolved UOQ; 75-47-tugvn-outer quadrant; 15-16-upper inner quadrant; 17-18- lower inner quadrant; 19-skin; 20-21- three whole possible lymph nodes each; 22-23-one bisected lymph node each; 24-25-one trisected lymph node; 26-27-one bisected lymph node; 28-29-one bisected lymph node; 30-32-one trisected lymph node; 40-05-ibptpepfljgxks sections of largest lymph node. Time to formalin fixation: 15 minutes Total formalin fixation time: approximately 32 hours B. Received in formalin labeled "extra mastectomy skin left breast," is a 16.0 x 4.0 cm wells, elliptical, unoriented portion of skin excised to a depth of 05 cm. The epidermal surface is unremarkable. Door Manager sections are submitted in one cassette. 06/28/2018
== END 2018-06-29 13:02 | disposition home or self-care (01) | DRG 583 ==
LOC: FM/S 06:49
PROVIDERS: ADMIT Surgery Surgical Oncology; ATTEND Surgery Surgical Oncology
PROC: 0HTU0ZZ Resection of Left Breast, Open Approach (ICD-10-PCS; principal; 2018-06-27 09:18)
PROC: 0HHU0NZ Insertion of Tissue Expander into Left Breast, Open Approach (ICD-10-PCS; 2018-06-27 09:18)
DX: C50.912 Malignant neoplasm of unspecified site of left female breast (principal); Z17.1 Estrogen receptor negative status [ER-]; N95.9 Unspecified menopausal and perimenopausal disorder; F17.210 Nicotine dependence, cigarettes, uncomplicated; Z90.710 Acquired absence of both cervix and uterus
CPT/HCPCS: 36415; 85027; 88304-TC; 88309-TC; 94760; J1644

== ENCOUNTER 2018-08-17 06:02 | Day surgery (SDC) | payer BC ==
[2018-08-17] MEDS ORDERED: SODIUM CHLORIDE 250 ML IV ONE ×2 (09:00→11:30)
[2018-08-17] MEDS ORDERED: DEXAMETHASONE SODIUM PHOSPHATE 10 MG, DIPHENHYDRAMINE 50 MG in SODIUM CHLORIDE 100 ML IVPB ONE (10:00)
[2018-08-17] MEDS ORDERED: FAMOTIDINE 20 MG/50 ML IVPB 20 MG/50 ML MG IVPB ONE (10:00)
[2018-08-17] MEDS ORDERED: PACLITAXEL 168 MG in SODIUM CHLORIDE 250 ML IVPB ONE (10:30)
[2018-08-17 11:35] LABS: BASO % 0.3 % (0-2.0); EOS % 5.9 % (0-4.5); HEMATOCRIT 38.7 % (32.4-45.2); HEMOGLOBIN 13.4 GM/dL (10.7-15.3); LYMPH % 25.4 % (8-40); MCH 34.3 pg (25.7-33.7); MCHC 34.5 g/dl (32.0-36.0); MEAN CELL VOLUME 99.2 fl (80-96); MEAN PLT VOLUME 7.4 fl (7.5-11.1); MONO % 6.4 % (3.8-10.2); PLATELET COUNT 295 K/MM3 (134-434); RDW 13.5 % (11.6-15.6)
[2018-08-17 12:12] LABS: ALBUMIN 3.3 g/dl (3.4-5.0); BILIRUBIN,DIRECT 0.1 mg/dL (0.0-0.2); BILIRUBIN,TOTAL 0.3 mg/dL (0.2-1); TOT PROT 7.7 g/dl (6.4-8.2)
[2018-08-17 12:13] LABS: ALBUMIN 3.4 g/dl (3.4-5.0); ALK PHOS 71 U/L (45-117); ANION GAP 5 MMOL/L (8-16); BILIRUBIN,TOTAL 0.3 mg/dL (0.2-1); BLOOD UREA NITROGEN 8 mg/dL (7-18); CHLORIDE 110 mmol/L (98-107); CO2 26 mmol/L (21-32); CREATININE 0.9 mg/dL (0.55-1.3); GLUCOSE,RANDOM 115 mg/dL (74-106); POTASSIUM 4.1 mmol/L (3.5-5.1); SGOT/AST 15 U/L (15-37); SGPT/ALT 27 U/L (13-61); SODIUM 142 mmol/L (136-145); TOT PROT 7.7 g/dl (6.4-8.2)
[2018-08-17] MEDS ORDERED: ONDANSETRON 4 MG/2 ML VIAL IVPB ONE (13:30)
[2018-08-17] MEDS ORDERED: DEXAMETHASONE SOD PHOSPHATE 10 MG/1 ML VIAL IVPB ONE ×2 (13:30→14:00)
[2018-08-17] MEDS ORDERED: ALTEPLASE 2 MG VIAL CVP ONE (15:30)
[2018-08-17 18:27] VITALS: TEMP 98.3
[2018-08-17 19:11] VITALS: BP 138/86; PULSE 80
[2018-08-17] MEDS ORDERED: PORTA CATH FLUSH 10 ML IVPUSH ONE (19:11)
== END 2018-08-17 19:14 | disposition home or self-care (01) ==
LOC: JONCCHEMO 06:02 → J7W 13:05 → JONCCHEMO 19:14
PROVIDERS: ATTEND Internal Medicine Hematology & Oncology
DX: Z51.11 Encounter for antineoplastic chemotherapy (principal); C50.412 Malignant neoplasm of upper-outer quadrant of left female breast
CPT/HCPCS: 36415; 80053; 80076; 83735; 85025; 96361; 96366; 96367; 96375; 96413; J1100; J2997

== ENCOUNTER 2018-08-24 07:10 | Day surgery (SDC) | payer BC ==
[2018-08-24] MEDS ORDERED: FAMOTIDINE 20 MG/50 ML IVPB 20 MG/50 ML MG IVPB ONE (10:00)
[2018-08-24] MEDS ORDERED: DEXAMETHASONE SODIUM PHOSPHATE 10 MG, DIPHENHYDRAMINE 50 MG in SODIUM CHLORIDE 100 ML IVPB ONE (10:00)
[2018-08-24] MEDS ORDERED: ACETAMINOPHEN 325 MG TABLET (FP) PO ONE (10:00)
[2018-08-24] MEDS ORDERED: SODIUM CHLORIDE IVPB ONE (10:30)
[2018-08-24] MEDS ORDERED: PACLITAXEL IVPB ONE (10:30)
[2018-08-24 11:41] LABS: BASO % 0.5 % (0-2.0); EOS % 4.4 % (0-4.5); HEMATOCRIT 37.1 % (32.4-45.2); HEMOGLOBIN 12.8 GM/dL (10.7-15.3); LYMPH % 15.7 % (8-40); MCH 34.1 pg (25.7-33.7); MCHC 34.6 g/dl (32.0-36.0); MEAN CELL VOLUME 98.5 fl (80-96); MEAN PLT VOLUME 7.6 fl (7.5-11.1); MONO % 4.7 % (3.8-10.2); NEUT % 74.7 % (42.8-82.8); PLATELET COUNT 282 K/MM3 (134-434); RBC 3.77 M/mm3 (3.60-5.2); RDW 13.3 % (11.6-15.6); WHITE BLOOD COUNT 6.1 K/mm3 (4.0-10.0)
[2018-08-24 12:09] LABS: ALBUMIN 3.5 g/dl (3.4-5.0); BILIRUBIN,DIRECT 0.1 mg/dL (0.0-0.2); BILIRUBIN,TOTAL 0.3 mg/dL (0.2-1); MAGNESIUM 1.8 mg/dL (1.8-2.4); TOT PROT 7.4 g/dl (6.4-8.2)
[2018-08-24 12:14] LABS: ALBUMIN 3.4 g/dl (3.4-5.0); ALK PHOS 71 U/L (45-117); ANION GAP 7 MMOL/L (8-16); BILIRUBIN,TOTAL 0.3 mg/dL (0.2-1); BLOOD UREA NITROGEN 12 mg/dL (7-18); CHLORIDE 108 mmol/L (98-107); CO2 26 mmol/L (21-32); CREATININE 0.9 mg/dL (0.55-1.3); GLUCOSE,RANDOM 142 mg/dL (74-106); POTASSIUM 3.7 mmol/L (3.5-5.1); SGOT/AST 14 U/L (15-37); SGPT/ALT 27 U/L (13-61); SODIUM 141 mmol/L (136-145); TOT PROT 7.5 g/dl (6.4-8.2)
[2018-08-24 18:28] VITALS: BP 126/83; PULSE 90
[2018-08-24] MEDS ORDERED: PORTA CATH FLUSH 10 ML IVPUSH ONE (18:28)
[2018-08-24 18:31] VITALS: TEMP 98.6
== END 2018-08-24 15:55 | disposition home or self-care (01) ==
LOC: JONCCHEMO 07:10 → J7W 13:01 → JONCCHEMO 15:55
PROVIDERS: ATTEND Internal Medicine Hematology & Oncology
PROC: 3E04305 Introduction of Other Antineoplastic into Central Vein, Percutaneous Approach (ICD-10-PCS; principal; 2018-08-24)
PROC: 3E043GC Introduction of Other Therapeutic Substance into Central Vein, Percutaneous Approach (ICD-10-PCS; 2018-08-24)
DX: Z51.11 Encounter for antineoplastic chemotherapy (principal); C50.412 Malignant neoplasm of upper-outer quadrant of left female breast; Z17.1 Estrogen receptor negative status [ER-]
CPT/HCPCS: 36415; 80053; 80076; 83735; 85025; 96367; 96375; 96413; 96417

== ENCOUNTER 2018-08-31 05:26 | Day surgery (SDC) | payer BC ==
[2018-08-31] MEDS ORDERED: ACETAMINOPHEN 325 MG TABLET (FP) PO ONE (08:00)
[2018-08-31] MEDS ORDERED: FAMOTIDINE 20 MG/50 ML IVPB 20 MG/50 ML MG IVPB ONE (08:00)
[2018-08-31] MEDS ORDERED: DEXAMETHASONE INJECTION 10 MG, DIPHENHYDRAMINE 50 MG in SODIUM CHLORIDE 100 ML IVPB ONE (08:00)
[2018-08-31] MEDS ORDERED: PACLITAXEL IVPB ONE (08:30)
[2018-08-31] MEDS ORDERED: SODIUM CHLORIDE IVPB ONE (08:30)
[2018-08-31 11:20] LABS: BASO % 0.6 % (0-2.0); HEMATOCRIT 38.1 % (32.4-45.2); HEMOGLOBIN 13.2 GM/dL (10.7-15.3); LYMPH % 25.7 % (8-40); MCH 34.5 pg (25.7-33.7); MCHC 34.8 g/dl (32.0-36.0); MEAN CELL VOLUME 99.2 fl (80-96); MEAN PLT VOLUME 7.6 fl (7.5-11.1); NEUT % 64.7 % (42.8-82.8); PLATELET COUNT 294 K/MM3 (134-434); RBC 3.83 M/mm3 (3.60-5.2); RDW 13.7 % (11.6-15.6)
[2018-08-31 11:53] LABS: ALBUMIN 3.4 g/dl (3.4-5.0); ALK PHOS 76 U/L (45-117); ANION GAP 11 MMOL/L (8-16); BILIRUBIN,DIRECT 0.1 mg/dL (0.0-0.2); BILIRUBIN,TOTAL 0.2 mg/dL (0.2-1); BLOOD UREA NITROGEN 12 mg/dL (7-18); CALCIUM 9.7 mg/dL (8.5-10.1); CHLORIDE 107 mmol/L (98-107); CO2 22 mmol/L (21-32); GLUCOSE,RANDOM 150 mg/dL (74-106); MAGNESIUM 1.9 mg/dL (1.8-2.4); POTASSIUM 3.8 mmol/L (3.5-5.1); SGOT/AST 14 U/L (15-37); SGPT/ALT 29 U/L (13-61); SODIUM 140 mmol/L (136-145); TOT PROT 7.5 g/dl (6.4-8.2)
[2018-08-31 14:25] VITALS: TEMP 97.7
[2018-08-31 14:26] VITALS: BP 131/88; PULSE 96
== END 2018-08-31 14:20 | disposition home or self-care (01) ==
LOC: JONCCHEMO 05:26 → J7W 12:08 → JONCCHEMO 14:20
PROVIDERS: ATTEND Internal Medicine Hematology & Oncology
DX: Z51.11 Encounter for antineoplastic chemotherapy (principal); C50.412 Malignant neoplasm of upper-outer quadrant of left female breast; Z17.1 Estrogen receptor negative status [ER-]
CPT/HCPCS: 36415; 80053; 80076; 83735; 85025; 96366; 96367; 96375; 96413; J1100

== ENCOUNTER 2018-09-07 07:10 | Day surgery (SDC) | payer BC ==
[2018-09-07] MEDS ORDERED: FAMOTIDINE 20 MG/50 ML IVPB 20 MG/50 ML MG IVPB ONE (08:00)
[2018-09-07] MEDS ORDERED: DEXAMETHASONE SODIUM PHOSPHATE 10 MG, DIPHENHYDRAMINE 50 MG in SODIUM CHLORIDE 100 ML IVPB ONE (08:00)
[2018-09-07] MEDS ORDERED: ACETAMINOPHEN 325 MG TABLET (FP) PO ONE (08:00)
[2018-09-07] MEDS ORDERED: PACLITAXEL IVPB ONE (08:30)
[2018-09-07] MEDS ORDERED: SODIUM CHLORIDE IVPB ONE (08:30)
[2018-09-07 11:49] LABS: BASO % 0.7 % (0-2.0); EOS % 1.7 % (0-4.5); HEMATOCRIT 37.7 % (32.4-45.2); HEMOGLOBIN 13.1 GM/dL (10.7-15.3); MCH 33.9 pg (25.7-33.7); MCHC 34.8 g/dl (32.0-36.0); MEAN CELL VOLUME 97.3 fl (80-96); MEAN PLT VOLUME 8.1 fl (7.5-11.1); MONO % 7.4 % (3.8-10.2); NEUT % 65.2 % (42.8-82.8); PLATELET COUNT 314 K/MM3 (134-434); RBC 3.87 M/mm3 (3.60-5.2); RDW 14.3 % (11.6-15.6); WHITE BLOOD COUNT 4.5 K/mm3 (4.0-10.0)
[2018-09-07 12:24] LABS: ALBUMIN 3.6 g/dl (3.4-5.0); ALK PHOS 81 U/L (45-117); ANION GAP 5 MMOL/L (8-16); BILIRUBIN,DIRECT 0.1 mg/dL (0.0-0.2); BILIRUBIN,TOTAL 0.2 mg/dL (0.2-1); BLOOD UREA NITROGEN 11 mg/dL (7-18); CALCIUM 9.7 mg/dL (8.5-10.1); CHLORIDE 108 mmol/L (98-107); CO2 25 mmol/L (21-32); CREATININE 0.8 mg/dL (0.55-1.3); GLUCOSE,RANDOM 91 mg/dL (74-106); MAGNESIUM 1.9 mg/dL (1.8-2.4); POTASSIUM 4.2 mmol/L (3.5-5.1); SGOT/AST 15 U/L (15-37); SGPT/ALT 34 U/L (13-61); SODIUM 138 mmol/L (136-145); TOT PROT 7.4 g/dl (6.4-8.2)
[2018-09-07] MEDS ORDERED: ACETAMINOPHEN 325 MG TABLET (FP) ONE (13:14)
[2018-09-07 15:22] VITALS: TEMP 98.1
[2018-09-07] MEDS ORDERED: PORTA CATH FLUSH 10 ML IVPUSH ONE (15:34)
[2018-09-07 15:35] VITALS: BP 121/74; PULSE 82
== END 2018-09-07 15:36 | disposition home or self-care (01) ==
LOC: JONCCHEMO 07:10 → J7W 12:36 → JONCCHEMO 15:36
PROVIDERS: ATTEND Internal Medicine Hematology & Oncology
DX: Z51.11 Encounter for antineoplastic chemotherapy (principal); C50.412 Malignant neoplasm of upper-outer quadrant of left female breast
CPT/HCPCS: 36415; 80048; 80076; 83735; 85025; 96367; 96375; 96413

== ENCOUNTER 2018-09-14 05:14 | Day surgery (SDC) | payer BC ==
[2018-09-14] MEDS ORDERED: ACETAMINOPHEN 325 MG TABLET (FP) PO ONE (08:00)
[2018-09-14] MEDS ORDERED: DEXAMETHASONE SODIUM PHOSPHATE 10 MG, DIPHENHYDRAMINE 50 MG in SODIUM CHLORIDE 100 ML IVPB ONE (08:00)
[2018-09-14] MEDS ORDERED: FAMOTIDINE 20 MG/50 ML IVPB 20 MG/50 ML MG IVPB ONE (08:00)
[2018-09-14] MEDS ORDERED: PACLITAXEL IVPB ONE (08:30)
[2018-09-14] MEDS ORDERED: SODIUM CHLORIDE IVPB ONE (08:30)
[2018-09-14 11:44] LABS: BASO % 0.9 % (0-2.0); HEMATOCRIT 39.1 % (32.4-45.2); HEMOGLOBIN 12.5 GM/dL (10.7-15.3); LYMPH % 29.6 % (8-40); MCH 31.8 pg (25.7-33.7); MCHC 32.1 g/dl (32.0-36.0); MEAN CELL VOLUME 99.1 fl (80-96); MEAN PLT VOLUME 7.8 fl (7.5-11.1); MONO % 6.8 % (3.8-10.2); NEUT % 59.7 % (42.8-82.8); PLATELET COUNT 294 K/MM3 (134-434); RBC 3.94 M/mm3 (3.60-5.2); RDW 14.2 % (11.6-15.6); WHITE BLOOD COUNT 4.3 K/mm3 (4.0-10.0)
[2018-09-14 12:05] LABS: ALBUMIN 3.5 g/dl (3.4-5.0); ALK PHOS 75 U/L (45-117); ANION GAP 8 MMOL/L (8-16); BILIRUBIN,DIRECT 0.1 mg/dL (0.0-0.2); BILIRUBIN,TOTAL 0.2 mg/dL (0.2-1); BLOOD UREA NITROGEN 12 mg/dL (7-18); CALCIUM 9.7 mg/dL (8.5-10.1); CHLORIDE 107 mmol/L (98-107); CO2 24 mmol/L (21-32); CREATININE 0.9 mg/dL (0.55-1.3); GLUCOSE,RANDOM 119 mg/dL (74-106); POTASSIUM 4.4 mmol/L (3.5-5.1); SGOT/AST 18 U/L (15-37); SGPT/ALT 39 U/L (13-61); SODIUM 139 mmol/L (136-145); TOT PROT 7.1 g/dl (6.4-8.2)
[2018-09-14 17:42] VITALS: TEMP 98.5
[2018-09-14] MEDS ORDERED: PORTA CATH FLUSH 10 ML IVPUSH ONE (17:42)
[2018-09-14 17:44] VITALS: BP 142/79; PULSE 86
== END 2018-09-14 14:45 | disposition home or self-care (01) ==
LOC: JONCCHEMO 05:14 → J7W 12:12 → JONCCHEMO 14:45
PROVIDERS: ATTEND Internal Medicine Hematology & Oncology
DX: Z51.11 Encounter for antineoplastic chemotherapy (principal); C50.412 Malignant neoplasm of upper-outer quadrant of left female breast
CPT/HCPCS: 36415; 80048; 80076; 83735; 85025; 96367; 96375; 96413

== ENCOUNTER 2018-09-21 07:14 | Day surgery (SDC) | payer BC ==
[2018-09-21] MEDS ORDERED: DEXAMETHASONE SODIUM PHOSPHATE 10 MG, DIPHENHYDRAMINE 50 MG in SODIUM CHLORIDE 100 ML IVPB ONE (08:00)
[2018-09-21] MEDS ORDERED: ACETAMINOPHEN 325 MG TABLET (FP) PO ONE (08:00)
[2018-09-21] MEDS ORDERED: FAMOTIDINE 20 MG/50 ML IVPB 20 MG/50 ML MG IVPB ONE (08:00)
[2018-09-21] MEDS ORDERED: PACLITAXEL IVPB ONE (08:30)
[2018-09-21] MEDS ORDERED: SODIUM CHLORIDE IVPB ONE (08:30)
[2018-09-21 11:34] LABS: BASO % 0.4 % (0-2.0); EOS % 2.4 % (0-4.5); HEMATOCRIT 39.5 % (32.4-45.2); HEMOGLOBIN 13.7 GM/dL (10.7-15.3); LYMPH % 21.9 % (8-40); MCH 33.6 pg (25.7-33.7); MCHC 34.7 g/dl (32.0-36.0); MEAN CELL VOLUME 96.9 fl (80-96); MEAN PLT VOLUME 7.9 fl (7.5-11.1); MONO % 8.3 % (3.8-10.2); PLATELET COUNT 296 K/MM3 (134-434); RBC 4.07 M/mm3 (3.60-5.2); RDW 14.7 % (11.6-15.6); WHITE BLOOD COUNT 5.4 K/mm3 (4.0-10.0)
[2018-09-21] MEDS ORDERED: SODIUM CHLORIDE 500 ML IV ONE (12:00)
[2018-09-21 12:02] LABS: ALBUMIN 3.7 g/dl (3.4-5.0); ALK PHOS 79 U/L (45-117); ANION GAP 10 MMOL/L (8-16); BILIRUBIN,DIRECT 0.1 mg/dL (0.0-0.2); BILIRUBIN,TOTAL 0.3 mg/dL (0.2-1); BLOOD UREA NITROGEN 15 mg/dL (7-18); CALCIUM 10.5 mg/dL (8.5-10.1); CHLORIDE 109 mmol/L (98-107); CO2 23 mmol/L (21-32); GLUCOSE,RANDOM 105 mg/dL (74-106); MAGNESIUM 2.2 mg/dL (1.8-2.4); POTASSIUM 4.6 mmol/L (3.5-5.1); SGOT/AST 22 U/L (15-37); SGPT/ALT 47 U/L (13-61); SODIUM 141 mmol/L (136-145); TOT PROT 7.9 g/dl (6.4-8.2)
[2018-09-21 16:35] VITALS: PULSE 98; TEMP 97.8
[2018-09-21] MEDS ORDERED: PORTA CATH FLUSH 10 ML IVPUSH ONE (16:53)
[2018-09-21 16:54] VITALS: BP 139/86
== END 2018-09-21 17:10 | disposition home or self-care (01) ==
LOC: JONCCHEMO 07:14 → J7W 12:23 → JONCCHEMO 17:10
PROVIDERS: ATTEND Internal Medicine Hematology & Oncology
DX: Z51.11 Encounter for antineoplastic chemotherapy (principal); C50.412 Malignant neoplasm of upper-outer quadrant of left female breast
CPT/HCPCS: 36415; 80048; 80076; 83735; 85025; 96361; 96367; 96375; 96413; J7030

== ENCOUNTER 2018-09-28 07:04 | Day surgery (SDC) | payer BC ==
[2018-09-28] MEDS ORDERED: FAMOTIDINE 20 MG/50 ML IVPB 20 MG/50 ML MG IVPB ONE (10:00)
[2018-09-28] MEDS ORDERED: DEXAMETHASONE SODIUM PHOSPHATE 10 MG, DIPHENHYDRAMINE 50 MG in SODIUM CHLORIDE 100 ML IVPB ONE (10:00)
[2018-09-28] MEDS ORDERED: ACETAMINOPHEN 325 MG TABLET (FP) PO ONE (10:00)
[2018-09-28] MEDS ORDERED: SODIUM CHLORIDE IVPB ONE (10:30)
[2018-09-28] MEDS ORDERED: PACLITAXEL IVPB ONE (10:30)
[2018-09-28 10:40] LABS: BASO % 0.5 % (0-2.0); EOS % 1.4 % (0-4.5); HEMATOCRIT 39.1 % (32.4-45.2); HEMOGLOBIN 13.3 GM/dL (10.7-15.3); LYMPH % 24.5 % (8-40); MCH 33.1 pg (25.7-33.7); MCHC 34.1 g/dl (32.0-36.0); MEAN CELL VOLUME 97.2 fl (80-96); MEAN PLT VOLUME 7.7 fl (7.5-11.1); MONO % 4.5 % (3.8-10.2); NEUT % 69.1 % (42.8-82.8); PLATELET COUNT 337 K/MM3 (134-434); RBC 4.02 M/mm3 (3.60-5.2); RDW 15.2 % (11.6-15.6); WHITE BLOOD COUNT 5.7 K/mm3 (4.0-10.0)
[2018-09-28 11:05] LABS: ALBUMIN 3.5 g/dl (3.4-5.0); ALK PHOS 73 U/L (45-117); ANION GAP 10 MMOL/L (8-16); BILIRUBIN,DIRECT 0.1 mg/dL (0.0-0.2); BILIRUBIN,TOTAL 0.4 mg/dL (0.2-1); BLOOD UREA NITROGEN 9 mg/dL (7-18); CHLORIDE 106 mmol/L (98-107); CO2 23 mmol/L (21-32); CREATININE 1.1 mg/dL (0.55-1.3); GLUCOSE,RANDOM 162 mg/dL (74-106); LDH 162 U/L (84-246); POTASSIUM 4.3 mmol/L (3.5-5.1); SGOT/AST 16 U/L (15-37); SGPT/ALT 41 U/L (13-61); SODIUM 139 mmol/L (136-145); TOT PROT 7.2 g/dl (6.4-8.2)
[2018-09-28] MEDS ORDERED: DEXAMETHASONE SOD PHOSPHATE 4 MG/1 ML VIAL IVPB ONE (11:15)
[2018-09-28] MEDS ORDERED: DEXAMETHASONE SOD PHOSPHATE 10 MG/1 ML VIAL IVPB ONE (11:45)
[2018-09-28 16:23] VITALS: TEMP 98.1
[2018-09-28] MEDS ORDERED: PORTA CATH FLUSH 10 ML IVPUSH ONE (16:23)
[2018-09-28 16:25] VITALS: BP 138/83; PULSE 96
== END 2018-09-28 13:45 | disposition home or self-care (01) ==
LOC: JONCCHEMO 07:04 → J7W 11:09 → JONCCHEMO 13:45
PROVIDERS: ATTEND Internal Medicine Hematology & Oncology
PROC: 3E04305 Introduction of Other Antineoplastic into Central Vein, Percutaneous Approach (ICD-10-PCS; principal; 2018-09-28)
PROC: 3E043GC Introduction of Other Therapeutic Substance into Central Vein, Percutaneous Approach (ICD-10-PCS; 2018-09-28)
DX: Z51.11 Encounter for antineoplastic chemotherapy (principal); C50.412 Malignant neoplasm of upper-outer quadrant of left female breast; Z17.1 Estrogen receptor negative status [ER-]
CPT/HCPCS: 36415; 80048; 80076; 83615; 85025; 96367; 96375; 96413; J1100

== ENCOUNTER 2018-10-05 07:07 | Day surgery (SDC) | payer BC ==
[2018-10-05] MEDS ORDERED: DEXAMETHASONE SODIUM PHOSPHATE 8 MG, DIPHENHYDRAMINE 25 MG in SODIUM CHLORIDE 100 ML IVPB ONE (10:00)
[2018-10-05] MEDS ORDERED: ACETAMINOPHEN 325 MG TABLET (FP) PO ONE (10:00)
[2018-10-05] MEDS ORDERED: FAMOTIDINE 20 MG/50 ML IVPB 20 MG/50 ML MG IVPB ONE (10:00)
[2018-10-05] MEDS ORDERED: PACLITAXEL 168 MG in SODIUM CHLORIDE 250 ML IVPB ONE (10:30)
[2018-10-05 11:24] LABS: BASO % 0.5 % (0-2.0); EOS % 3.6 % (0-4.5); HEMATOCRIT 38.3 % (32.4-45.2); HEMOGLOBIN 13.4 GM/dL (10.7-15.3); LYMPH % 27.5 % (8-40); MCH 34.3 pg (25.7-33.7); MCHC 35.1 g/dl (32.0-36.0); MEAN PLT VOLUME 7.9 fl (7.5-11.1); MONO % 9.9 % (3.8-10.2); NEUT % 58.5 % (42.8-82.8); PLATELET COUNT 279 K/MM3 (134-434); RBC 3.91 M/mm3 (3.60-5.2); RDW 15.9 % (11.6-15.6); WHITE BLOOD COUNT 3.5 K/mm3 (4.0-10.0)
[2018-10-05 12:01] LABS: ALBUMIN 3.5 g/dl (3.4-5.0); ALK PHOS 72 U/L (45-117); ANION GAP 10 MMOL/L (8-16); BILIRUBIN,DIRECT 0.1 mg/dL (0.0-0.2); BILIRUBIN,TOTAL 0.3 mg/dL (0.2-1); BLOOD UREA NITROGEN 11 mg/dL (7-18); CALCIUM 9.8 mg/dL (8.5-10.1); CHLORIDE 109 mmol/L (98-107); CO2 22 mmol/L (21-32); CREATININE 0.9 mg/dL (0.55-1.3); GLUCOSE,RANDOM 123 mg/dL (74-106); MAGNESIUM 1.7 mg/dL (1.8-2.4); POTASSIUM 4.2 mmol/L (3.5-5.1); SGOT/AST 17 U/L (15-37); SGPT/ALT 39 U/L (13-61); SODIUM 140 mmol/L (136-145)
[2018-10-05 16:22] VITALS: TEMP 98.5
[2018-10-05 16:33] VITALS: BP 127/82; PULSE 87
[2018-10-05] MEDS ORDERED: PORTA CATH FLUSH 10 ML IVPUSH ONE (16:33)
== END 2018-10-05 15:30 | disposition home or self-care (01) ==
LOC: JONCCHEMO 07:07 → J7W 12:24 → JONCCHEMO 15:30
PROVIDERS: ATTEND Internal Medicine Hematology & Oncology
DX: Z51.11 Encounter for antineoplastic chemotherapy (principal); C50.412 Malignant neoplasm of upper-outer quadrant of left female breast; Z17.1 Estrogen receptor negative status [ER-]
CPT/HCPCS: 36415; 80048; 80076; 83735; 85025; 96367; 96375; 96413

== ENCOUNTER 2018-10-19 07:13 | Day surgery (SDC) | payer BC ==
[2018-10-19] MEDS ORDERED: FAMOTIDINE 20 MG/50 ML IVPB 20 MG/50 ML MG IVPB ONE (10:00)
[2018-10-19] MEDS ORDERED: ACETAMINOPHEN 325 MG TABLET (FP) PO ONE (10:00)
[2018-10-19] MEDS ORDERED: DEXAMETHASONE SODIUM PHOSPHATE 8 MG, DIPHENHYDRAMINE 25 MG in SODIUM CHLORIDE 100 ML IVPB ONE (10:00)
[2018-10-19] MEDS ORDERED: PACLITAXEL IVPB ONE (10:30)
[2018-10-19] MEDS ORDERED: SODIUM CHLORIDE IVPB ONE (10:30)
[2018-10-19 11:08] LABS: BASO % 0.4 % (0-2.0); EOS % 1.9 % (0-4.5); HEMATOCRIT 41.7 % (32.4-45.2); HEMOGLOBIN 14.4 GM/dL (10.7-15.3); LYMPH % 23.1 % (8-40); MCHC 34.6 g/dl (32.0-36.0); MEAN CELL VOLUME 98.4 fl (80-96); MEAN PLT VOLUME 7.7 fl (7.5-11.1); MONO % 8.4 % (3.8-10.2); NEUT % 66.2 % (42.8-82.8); PLATELET COUNT 335 K/MM3 (134-434); RBC 4.23 M/mm3 (3.60-5.2); RDW 16.5 % (11.6-15.6); WHITE BLOOD COUNT 6.6 K/mm3 (4.0-10.0)
[2018-10-19 11:38] LABS: ALBUMIN 3.6 g/dl (3.4-5.0); ALK PHOS 77 U/L (45-117); ANION GAP 10 MMOL/L (8-16); BILIRUBIN,DIRECT 0.1 mg/dL (0.0-0.2); BILIRUBIN,TOTAL 0.4 mg/dL (0.2-1); BLOOD UREA NITROGEN 8 mg/dL (7-18); CALCIUM 10.1 mg/dL (8.5-10.1); CHLORIDE 110 mmol/L (98-107); CO2 21 mmol/L (21-32); CREATININE 1.1 mg/dL (0.55-1.3); GLUCOSE,RANDOM 154 mg/dL (74-106); POTASSIUM 3.9 mmol/L (3.5-5.1); SGOT/AST 16 U/L (15-37); SGPT/ALT 42 U/L (13-61); SODIUM 141 mmol/L (136-145); TOT PROT 7.6 g/dl (6.4-8.2); TOT PROT 7.7 g/dl (6.4-8.2)
[2018-10-19 17:09] VITALS: PULSE 91; TEMP 97.9
[2018-10-19] MEDS ORDERED: PORTA CATH FLUSH 10 ML IVPUSH ONE (17:09)
[2018-10-19 17:10] VITALS: BP 142/91
== END 2018-10-19 14:15 | disposition home or self-care (01) ==
LOC: JONCCHEMO 07:13 → J7W 11:46 → JONCCHEMO 14:15
PROVIDERS: ATTEND Internal Medicine Hematology & Oncology
DX: Z51.11 Encounter for antineoplastic chemotherapy (principal); C50.412 Malignant neoplasm of upper-outer quadrant of left female breast; Z17.1 Estrogen receptor negative status [ER-]
CPT/HCPCS: 36415; 80053; 80076; 83735; 85025; 96367; 96375; 96413

== ENCOUNTER 2018-10-26 05:36 | Day surgery (SDC) | payer BC ==
[2018-10-26] MEDS ORDERED: FAMOTIDINE 20 MG/50 ML IVPB 20 MG/50 ML MG IVPB ONE (08:00)
[2018-10-26] MEDS ORDERED: ACETAMINOPHEN 325 MG TABLET (FP) PO ONE (08:00)
[2018-10-26] MEDS ORDERED: DEXAMETHASONE SODIUM PHOSPHATE 8 MG, DIPHENHYDRAMINE 25 MG in SODIUM CHLORIDE 100 ML IVPB ONE (08:00)
[2018-10-26] MEDS ORDERED: PACLITAXEL 168 MG in SODIUM CHLORIDE 250 ML IVPB ONE (08:30)
[2018-10-26 10:28] VITALS: PULSE 96
[2018-10-26 10:45] LABS: BASO % 0.2 % (0-2.0); EOS % 2.1 % (0-4.5); HEMATOCRIT 38.2 % (32.4-45.2); HEMOGLOBIN 13.2 GM/dL (10.7-15.3); LYMPH % 15.3 % (8-40); MCH 33.9 pg (25.7-33.7); MCHC 34.6 g/dl (32.0-36.0); MEAN CELL VOLUME 97.9 fl (80-96); MEAN PLT VOLUME 7.3 fl (7.5-11.1); MONO % 6.5 % (3.8-10.2); NEUT % 75.9 % (42.8-82.8); PLATELET COUNT 266 K/MM3 (134-434); RDW 16.5 % (11.6-15.6); WHITE BLOOD COUNT 7.8 K/mm3 (4.0-10.0)
[2018-10-26 11:11] LABS: ALBUMIN 3.4 g/dl (3.4-5.0); ALK PHOS 69 U/L (45-117); ANION GAP 8 MMOL/L (8-16); BILIRUBIN,TOTAL 0.4 mg/dL (0.2-1); BLOOD UREA NITROGEN 8 mg/dL (7-18); CHLORIDE 107 mmol/L (98-107); CO2 24 mmol/L (21-32); CREATININE 0.8 mg/dL (0.55-1.3); GLUCOSE,RANDOM 117 mg/dL (74-106); POTASSIUM 3.8 mmol/L (3.5-5.1); SGOT/AST 14 U/L (15-37); SGPT/ALT 34 U/L (13-61); SODIUM 139 mmol/L (136-145); TOT PROT 7.1 g/dl (6.4-8.2)
[2018-10-26 11:19] LABS: ALBUMIN 3.5 g/dl (3.4-5.0); BILIRUBIN,DIRECT 0.2 mg/dL (0.0-0.2); BILIRUBIN,TOTAL 0.5 mg/dL (0.2-1); MAGNESIUM 1.7 mg/dL (1.8-2.4); TOT PROT 7.1 g/dl (6.4-8.2)
[2018-10-26] MEDS ORDERED: SODIUM CHLORIDE IVPB ONE ×2 (13:00)
[2018-10-26] MEDS ORDERED: PACLITAXEL IVPB ONE ×2 (13:00)
[2018-10-26] MEDS ORDERED: MAGNESIUM SULF 50% (8.12 MEQ/2 ML-1 GM VIAL) IVPB ONE (13:20)
[2018-10-26 16:27] VITALS: TEMP 98.2
[2018-10-26] MEDS ORDERED: PORTA CATH FLUSH 10 ML IVPUSH ONE (16:27)
[2018-10-26 16:31] VITALS: BP 134/78
== END 2018-10-26 15:50 | disposition home or self-care (01) ==
LOC: JONCCHEMO 05:36 → J7W 12:14 → JONCCHEMO 15:50
PROVIDERS: ATTEND Internal Medicine Hematology & Oncology
DX: Z51.11 Encounter for antineoplastic chemotherapy (principal); C50.412 Malignant neoplasm of upper-outer quadrant of left female breast
CPT/HCPCS: 36415; 80053; 80076; 83735; 85025; 96366; 96367; 96375; 96413; 96417

== ENCOUNTER 2018-11-02 05:51 | Day surgery (SDC) | payer BC ==
[2018-11-02] MEDS ORDERED: FAMOTIDINE 20 MG/50 ML IVPB 20 MG/50 ML MG IVPB ONE (08:00)
[2018-11-02] MEDS ORDERED: DEXAMETHASONE SODIUM PHOSPHATE 8 MG, DIPHENHYDRAMINE 25 MG in SODIUM CHLORIDE 100 ML IVPB ONE (08:00)
[2018-11-02] MEDS ORDERED: ACETAMINOPHEN 325 MG TABLET (FP) PO ONE (08:00)
[2018-11-02] MEDS ORDERED: PACLITAXEL 132 MG in SODIUM CHLORIDE 250 ML IVPB ONE (08:30)
[2018-11-02 11:47] LABS: BASO % 0.2 % (0-2.0); EOS % 2.7 % (0-4.5); HEMATOCRIT 38.8 % (32.4-45.2); HEMOGLOBIN 13.5 GM/dL (10.7-15.3); LYMPH % 20.9 % (8-40); MCHC 34.8 g/dl (32.0-36.0); MEAN CELL VOLUME 97.7 fl (80-96); MEAN PLT VOLUME 8.1 fl (7.5-11.1); MONO % 5.4 % (3.8-10.2); NEUT % 70.8 % (42.8-82.8); PLATELET COUNT 302 K/MM3 (134-434); RBC 3.97 M/mm3 (3.60-5.2); RDW 17.4 % (11.6-15.6); WHITE BLOOD COUNT 5.7 K/mm3 (4.0-10.0)
[2018-11-02 12:10] LABS: ALBUMIN 3.5 g/dl (3.4-5.0); ALK PHOS 72 U/L (45-117); ANION GAP 8 MMOL/L (8-16); BILIRUBIN,TOTAL 0.3 mg/dL (0.2-1); BLOOD UREA NITROGEN 9 mg/dL (7-18); CALCIUM 10.1 mg/dL (8.5-10.1); CHLORIDE 106 mmol/L (98-107); CO2 25 mmol/L (21-32); GLUCOSE,RANDOM 132 mg/dL (74-106); POTASSIUM 4.1 mmol/L (3.5-5.1); SGOT/AST 13 U/L (15-37); SGPT/ALT 33 U/L (13-61); SODIUM 139 mmol/L (136-145); TOT PROT 7.4 g/dl (6.4-8.2)
[2018-11-02 12:11] LABS: ALBUMIN 3.5 g/dl (3.4-5.0); BILIRUBIN,DIRECT 0.1 mg/dL (0.0-0.2); BILIRUBIN,TOTAL 0.4 mg/dL (0.2-1); MAGNESIUM 1.8 mg/dL (1.8-2.4); TOT PROT 7.4 g/dl (6.4-8.2)
[2018-11-02 17:17] VITALS: TEMP 98.7
[2018-11-02] MEDS ORDERED: PORTA CATH FLUSH 10 ML IVPUSH ONE (17:17)
[2018-11-02 17:19] VITALS: BP 141/78; PULSE 85
== END 2018-11-02 15:45 | disposition home or self-care (01) ==
LOC: JONCCHEMO 05:51 → J7W 13:02 → JONCCHEMO 15:45
PROVIDERS: ATTEND Internal Medicine Hematology & Oncology
DX: Z51.11 Encounter for antineoplastic chemotherapy (principal); C50.412 Malignant neoplasm of upper-outer quadrant of left female breast; C77.3 Secondary and unspecified malignant neoplasm of axilla and upper limb lymph nodes; Z17.0 Estrogen receptor positive status [ER+]
CPT/HCPCS: 36415; 80053; 80076; 83735; 85025; 96367; 96375; 96413

== ENCOUNTER 2018-11-09 07:05 | Day surgery (SDC) | payer BC ==
[2018-11-09] MEDS ORDERED: ACETAMINOPHEN 325 MG TABLET (FP) PO ONE (08:00)
[2018-11-09] MEDS ORDERED: DEXAMETHASONE SODIUM PHOSPHATE 8 MG, DIPHENHYDRAMINE 25 MG in SODIUM CHLORIDE 100 ML IVPB ONE (08:00)
[2018-11-09] MEDS ORDERED: FAMOTIDINE 20 MG/50 ML IVPB 20 MG/50 ML MG IVPB ONE (08:00)
[2018-11-09] MEDS ORDERED: PACLITAXEL 132 MG in SODIUM CHLORIDE 250 ML IVPB ONE (08:30)
[2018-11-09 11:13] LABS: BASO % 0.4 % (0-2.0); EOS % 1.4 % (0-4.5); HEMATOCRIT 38.7 % (32.4-45.2); HEMOGLOBIN 13.1 GM/dL (10.7-15.3); LYMPH % 18.5 % (8-40); MCH 33.3 pg (25.7-33.7); MCHC 33.8 g/dl (32.0-36.0); MEAN CELL VOLUME 98.5 fl (80-96); MEAN PLT VOLUME 7.4 fl (7.5-11.1); MONO % 6.6 % (3.8-10.2); NEUT % 73.1 % (42.8-82.8); PLATELET COUNT 374 K/MM3 (134-434); RBC 3.93 M/mm3 (3.60-5.2); RDW 18.4 % (11.6-15.6); WHITE BLOOD COUNT 6.6 K/mm3 (4.0-10.0)
[2018-11-09 11:36] LABS: ALBUMIN 3.5 g/dl (3.4-5.0); ALK PHOS 71 U/L (45-117); ANION GAP 9 MMOL/L (8-16); BILIRUBIN,TOTAL 0.3 mg/dL (0.2-1); BLOOD UREA NITROGEN 8 mg/dL (7-18); CALCIUM 10.2 mg/dL (8.5-10.1); CHLORIDE 109 mmol/L (98-107); CO2 23 mmol/L (21-32); GLUCOSE,RANDOM 166 mg/dL (74-106); POTASSIUM 3.6 mmol/L (3.5-5.1); SGOT/AST 16 U/L (15-37); SGPT/ALT 38 U/L (13-61); SODIUM 140 mmol/L (136-145); TOT PROT 7.4 g/dl (6.4-8.2)
[2018-11-09 11:37] LABS: ALBUMIN 3.5 g/dl (3.4-5.0); BILIRUBIN,DIRECT 0.1 mg/dL (0.0-0.2); BILIRUBIN,TOTAL 0.4 mg/dL (0.2-1); MAGNESIUM 1.8 mg/dL (1.8-2.4); TOT PROT 7.5 g/dl (6.4-8.2)
[2018-11-09] MEDS ORDERED: PORTA CATH FLUSH 10 ML IVPUSH ONE (17:29)
[2018-11-09 17:30] VITALS: TEMP 98.5
[2018-11-09 17:35] VITALS: BP 110/76; PULSE 90
== END 2018-11-09 14:50 | disposition home or self-care (01) ==
LOC: JONCCHEMO 07:05 → J7W 12:20 → JONCCHEMO 14:50
PROVIDERS: ATTEND Internal Medicine Hematology & Oncology
DX: Z51.11 Encounter for antineoplastic chemotherapy (principal); C50.412 Malignant neoplasm of upper-outer quadrant of left female breast; C77.3 Secondary and unspecified malignant neoplasm of axilla and upper limb lymph nodes; Z17.0 Estrogen receptor positive status [ER+]
CPT/HCPCS: 36415; 80053; 80076; 83735; 85025; 96367; 96375; 96413